=== PATIENT | female | born 1965 | race Caucasian/White ===

== ENCOUNTER 2018-11-07 15:38 | Outpatient (CLI) | payer BC ==
[2018-11-07 16:28] LABS: BASOPHILS % (AUTO) 0.7 % (0-1); EOSINOPHILS # (AUTO) 0.2 X10'3 (0-0.9); EOSINOPHILS % (AUTO) 3.2 % (0-6); HEMATOCRIT 38.4 % (35.0-45.0); LYMPHOCYTES # (AUTO) 1.7 X10'3 (1.1-4.8); LYMPHOCYTES % (AUTO) 25.7 % (21-51); MEAN CORPUSCULAR HGB CONC 33.8 g/dL (33.0-36.5); MEAN CORPUSCULAR VOLUME 91.6 FL (78-98); MEAN PLATELET VOLUME 7.1 FL (7.4-10.4); MONOCYTES # (AUTO) 0.5 X10'3 (0-0.9); MONOCYTES % (AUTO) 7.4 % (2-12); NEUTROPHILS # (AUTO) 4.1 X10'3 (1.8-7.7); PLATELET COUNT 253 X10'3 (140-440); RED BLOOD COUNT 4.19 X10'6 (4.20-5.60); RED CELL DISTRIBUTION WIDTH 13.6 % (11.5-14.5); WHITE BLOOD COUNT 6.5 X10'3 (4.5-11.0)
[2018-11-07 16:42] LABS: ANION GAP 8 (8-16); BLOOD UREA NITROGEN 18 MG/DL (7-18); BUN/CREATININE RATIO 19.6 (6.6-38.0); CALCIUM 8.6 MG/DL (8.5-10.1); CHLORIDE 106 MMOL/L (99-107); CREATININE 0.92 MG/DL (0.40-0.90); POTASSIUM 3.8 MMOL/L (3.5-5.1); SODIUM 140 MMOL/L (135-145); TOTAL CARBON DIOXIDE 26.1 MMOL/L (24-32); eGFR 64 ML/MIN
[2018-11-07 16:43] LABS: ALANINE AMINOTRANSFERASE 31 U/L (12-78); ALBUMIN 3.5 G/DL (3.4-5.0); ALBUMIN/GLOBULIN RATIO 0.8 (1.1-1.5); ALKALINE PHOSPHATASE 70 IU/L (46-116); ASPARTATE AMINO TRANSFERASE 20 U/L (10-37); BILIRUBIN,TOTAL 0.3 MG/DL (0.1-1.0); TOTAL PROTEIN 7.7 G/DL (6.4-8.2)
[2018-11-07 16:45] LABS: GLUCOSE 94 MG/DL (70-104)
[2018-11-07 16:53] LABS: PARTIAL THROMBOPLASTIN TIME 25 SECONDS (22-32)
== END 2018-11-07 23:59 | disposition home or self-care (01) ==
LOC: LAB 15:38
PROVIDERS: ATTEND Otolaryngology
DX: D69.1 Qualitative platelet defects (principal); Z87.891 Personal history of nicotine dependence
CPT/HCPCS: 36415; 80053; 85025; 85576; 85610; 85730

== ENCOUNTER 2023-08-30 07:12 | Day surgery (SDC) | payer BC ==
[2023-08-26 14:44] LABS: ALBUMIN 3.6 G/DL (3.4-5.0); ALBUMIN/GLOBULIN RATIO 1.1 (1.1-1.5); ALKALINE PHOSPHATASE 36 IU/L (46-116); BLOOD UREA NITROGEN 18 MG/DL (7-18); CALCIUM 8.7 MG/DL (8.5-10.1); CHLORIDE 105 MMOL/L (99-107); CREATININE 0.75 MG/DL (0.40-0.90); PRE OP ANION GAP 5 (8-16); PRE OP AST 48 U/L (10-37); PRE OP GLUCOSE 93 MG/DL (70-104); PRE OP SODIUM 139 MMOL/L (135-145); TOTAL CARBON DIOXIDE 29.3 MMOL/L (24-32); TOTAL PROTEIN 6.9 G/DL (6.4-8.2); eGFR 80 ML/MIN
[2023-08-26 14:49] LABS: MEAN CORPUSCULAR HEMOGLOBIN 32.1 PG (27.0-31.0); MEAN CORPUSCULAR HGB CONC 33.7 g/dL (33.0-36.5); MEAN CORPUSCULAR VOLUME 95.4 FL (78-98); MEAN PLATELET VOLUME 9.2 FL (7.4-10.4); PRE OP HEMATOCRIT 42.2 % (35.0-45.0); PRE OP HEMOGLOBIN 14.2 g/dL (12.0-16.0); PRE OP PLATELET COUNT 170 X10'3 (140-440); PRE OP WHITE BLOOD COUNT 4.2 10'3 (4.8-10.8); RED BLOOD COUNT 4.42 X10'6 (4.20-5.60); RED CELL DISTRIBUTION WIDTH 13.4 % (11.5-14.5)
[2023-08-26 14:53] LABS: PRE OP ALT 90 U/L (30-65); PRE OP POTASSIUM 4.1 MMOL/L (3.4-5.1)
[2023-08-26 15:14] LABS: TOTAL CELLS COUNTED 100
[2023-08-26 15:15] LABS: PLATELET ESTIMATE NORMAL
[~2023-08-30] VITALS: Ht 152.4 cm; Wt 5.0 kg
[2023-08-30] VITALS (8 sets, daily range): BP systolic 115–124; BP diastolic 73–84; PULSE 59–92; RESP 9–16; TEMP 98.3; O2SAT 93–97
[2023-08-30] MEDS: cefazolin 2gm/D5W 100mL 100 ML IV ONE (05:30)
[~2023-08-30 07:12] MED LIST: AMLO5TAB16 PO; APPLE CIDER VINEGAR PO; CALCIUM PO; CEVI30CA7 PO; DOXE10CA3 PO; ESCI20TA39 PO; ESTR-164 TOP; FISH OIL PO; LEFL10TA20 PO; LEVO125T68 PO; LOSA50TA64 PO; MAGNESIUM PO; PROG100C11 PO; PSYLLIUM FIBER PO; ROSU10TA28 PO; TIRZ2.5P3 SQ; TOCI162P SQ; TUMERIC PO; VALA100031 PO; VITAMIN C PO; VITAMIN D PO
[2023-08-30] MEDS ORDERED: labetalol 20mg/4ml (5mg/ml) syringe IV PRN (07:30)
[2023-08-30] MEDS ORDERED: morphine 4 MG/ML inj SYRINge IV PRN (07:30)
[2023-08-30] MEDS ORDERED: ondansetron/PF 4mg/2ml inj IV PRN (07:30)
[2023-08-30] MEDS ORDERED: morphine 2 MG/ML inj. syringe IV PRN (07:30)
[2023-08-30] MEDS: ringers solution, lacted 1,000 ML IV SCH ×2 (07:50→09:33)
[2023-08-30] MEDS: famotidine 20mg tablet PO ONE (07:50)
[2023-08-30] MEDS ORDERED: propofol 10mg/ml 20ml vial IV ONE (08:38)
[2023-08-30] MEDS ORDERED: fentaNYL/PF 50MCG/1 ML 2ML syringe ONE (08:41)
[2023-08-30] MEDS ORDERED: midazolam 1 mg/ML 2ml injection ONE (08:44)
[2023-08-30] MEDS: BUPIVAcaine/PF 2.5mg/ml (0.25%) 10ml vial ONE (08:50)
[2023-08-30] MEDS: LIDOcaine 2% (20mg/ml) 5ml vial ONE (08:50)
== END 2023-08-30 09:57 | disposition home or self-care (01) ==
LOC: PAS 07:12
PROVIDERS: ATTEND Orthopaedic Surgery Hand Surgery
DX: G56.01 Carpal tunnel syndrome, right upper limb (principal); I10 Essential (primary) hypertension; E03.9 Hypothyroidism, unspecified; E78.5 Hyperlipidemia, unspecified; E66.9 Obesity, unspecified; G47.33 Obstructive sleep apnea (adult) (pediatric); J45.909 Unspecified asthma, uncomplicated; F41.9 Anxiety disorder, unspecified; F32.A Depression, unspecified; M06.9 Rheumatoid arthritis, unspecified; Z87.891 Personal history of nicotine dependence; Z79.899 Other long term (current) drug therapy; Z90.49 Acquired absence of other specified parts of digestive tract; Z98.890 Other specified postprocedural states; Z68.32 Body mass index [BMI] 32.0-32.9, adult; Z20.822 Contact with and (suspected) exposure to COVID-19; Z82.49 Family history of ischemic heart disease and other diseases of the circulatory system
CPT/HCPCS: 29848; 36415; 80053; 82948; 85025; 87811; 93005; J0690; J2250; J2704; J3010; J3490; J7030; J7120; Z7506; Z7512; 85007; A4215; A6449; A7000